=== PATIENT | male | born 1995 | race African-American/Black ===

== ENCOUNTER 2017-05-05 18:32 | Emergency (ER) | payer OTHER ==
[~2017-05-05] VITALS: Ht 185.4 cm; Wt 64.1 kg
[~2017-05-05 18:32] MED LIST: ONDA4TAB9 PO
[2017-05-05 18:42] VITALS: BP 107/70; PULSE 78; RESP 14; O2SAT 100
[2017-05-05 19:37] LABS: BASOPHILS % (AUTO) 0 % (0-3); EOSINOPHILS % (AUTO) 0 % (0-5); MONOCYTES % (AUTO) 4.4 % (4-12); Mean Corpuscular Hemoglobin 28.5 pg (27.0-35.0); Mean Corpuscular Volume 83.7 fL (81-100); Platelet Count 186 bil/L (150-400)
[2017-05-05 19:59] LABS: Magnesium 1.9 mg/dL (1.6-2.6)
--- NOTE | 2017-05-05 20:44 | ED.REPORT ---
HPI-NVD Date of Service May 05, 2017 ED Provider: Dr. Sundeep Pagan MD A 22 year old male with a suspected history of cyclic vomiting syndrome/ abdominal migraines presents to the ED with vomiting that began 3 days ago. The patient also presents with nausea, abdominal cramping and diarrhea that have become increasingly worse over the past few hours. Patient reports that his current symptoms are similar to his previous flares of cyclic vomiting. Vomiting has been intractable and he has been experiencing multiple episodes of diarrhea. He admits to occasional THC use. Patient denies drinking from any [place] or [place] recently. He was sent to the ED from Urgent Care for further evaluation. Patient denies recent fever or chills. Nursing Notes Stated Complaint: ABDOMINAL PAIN Chief Complaint: Male Abdominal Pain Nursing Notes Reviewed: Yes Allergies: Coded Allergies: No Known Allergies (Verified Allergy, Unknown, 07/02/16) Scheduled PRN Ondansetron ODT (Zofran ODT) 4 Mg Tablet 4 MG PO Q4H PRN PRN For Nausea General Time Seen by MD: 20:44 Chief Complaint Vomiting Hx Obtained From: Patient Arrived By: Walk-in Onset Occurred: 3 days ago Symptom Duration: Since onset Location: : Abdomen lower Quality: Cramping Radiation: : Does not radiate Severity: Current: Moderate Severity: Maximum: Moderate Associated with: Reports: Abdominal pain, Denies: Fever Pertinent Negative: Pt denies other symptoms Recent Healthcare: No recent doctor visit, No recent hospitalization Past Medical History Past Medical History Suspected: Cyclic vomiting syndrome Abdominal migraines Past Surgical History None reported. Family History Non-contributory Smoking History Unknown if Ever Smoker Social History Drug Use: THC Other Social History: Good social support, Local resident Ambulatory Status Independent Review of Systems Constitutional: Denies: Chills, Fever GI: Reports: Abdominal pain, Diarrhea, Nausea, Vomiting Complete sys rev & neg: except as marked. Physical Exam Initial Vital Signs Vital Signs (First) Date Time Temp Pulse Resp B/P Pulse Ox O2 Delivery O2 Flow Rate FiO2 05/05/17 18:42 36.6 78 14 107/70 100 Room Air Initial VS: Reviewed Head / Eyes: Atraumatic, Normocephalic, PERRL Neck: Supple, Non-tender, Full range of motion Extremities: Vascular intact, Neuro intact, No swelling, No tenderness Skin: Warm, Dry, No cyanosis Neurologic: Alert, Oriented, Nonfocal Psychiatric: Mood/affect normal, Behavior normal, Normal thought content General/Constitutional: Awake, Alert, No acute distress Abdomen: Atraumatic, Soft, Non-tender, No guarding, No rebound, BS normoactive ENT: Atraumatic, Airway patent Mouth: Positive: Mucous membranes dry Respiratory / Chest: Atraumatic, Breath sounds NL, Breath sounds = bilat, No respiratory distress Cardiovascular: Heart rate NL, Regular rhythm, Heart sounds NL Interpretation & Diagnostics Lab Results Interpretation Result Diagram: 05/05/17192405/05/171924 Test 05/05/17 19:25 White Blood Count 11.1th/mm3 (3.8-10.1) Red Blood Count 4.98mil/mm3 (4.40-5.80) Hemoglobin 14.2g/dL (13.8-17.2) Hematocrit 41.7% (41.0-50.0) Mean Corpuscular Volume 83.7fL (81-100) Mean Corpuscular Hemoglobin 28.5pg (27.0-35.0) Mean Corpuscular Hemoglobin Concent 34.1% (32.0-37.0) Red Cell Distribution Width 13.1% (12.3-15.4) Platelet Count 186bil/L (150-400) Neutrophils (%) (Auto) 93.0% (40-74) Lymphocytes (%) (Auto) 2.5% (14-46) Monocytes (%) (Auto) 4.4% (4-12) Eosinophils (%) (Auto) 0% (0-5) Basophils (%) (Auto) 0% (0-3) Sodium Level 137mEq/L (134-144) Potassium Level 4.2mEq/L (3.5-5.2) Chloride Level 102mEq/L (97-108) Carbon Dioxide Level 21mmol/L (18-29) Blood Urea Nitrogen 13mg/dL (6-20) Creatinine 0.72mg/dL (0.76-1.27) Estimat Glomerular Filtration Rate 144mL/min (>59) Glucose Level 112mg/dL (60-99) Lactic Acid Level 1.1mmol/L (0.4-2.0) Calcium Level 10.0mg/dL (8.5-10.1) Magnesium Level 1.9mg/dL (1.6-2.6) Total Bilirubin 0.5mg/dL (0.0-1.2) Aspartate Amino Transf (AST/SGOT) 18U/L (0-50) Alanine Aminotransferase (ALT/SGPT) 15U/L (0-44) Alkaline Phosphatase 54U/L (25-150) Total Protein 8.0g/dL (6.4-8.4) Albumin 4.7g/dL (3.4-5.0) Lipase 21U/L (13-60) Hold Mathews Top Tube Received (Received) Re-Eval/Medical Decision Re-Evaluation/Progress : Time of Eval: 22:45 Patient Status: Condition improved Re-Evaluation/Progress Note: Patient condition is re-evaluated. symptoms have improved following treatment. He is informed of his current results and the intended treatment plan. All of the patient's questions about his likely diagnosis and disposition are addressed. He understands and agree with the plan. Counseled Regarding: Diagnosis, Lab results, Need for follow-up, When/why to return to ED Discharge & Departure Impression: Primary Impression: Cyclical vomiting Vomiting Intractability: intractable Nausea presence: with nausea Qualified Code: G43.A1 - Cyclical vomiting, intractable Disposition: Home Discharge Condition All VS Reviewed: Yes Condition: Improved Patient Instructions: Acute Nausea and Vomiting (ED) Additional Instructions: Thank you for trusting us with your care this evening. Your emergency department evaluation today including examination and lab work are reassuring that there is no emergent cause for concern at this time and I believe that your symptoms are likely due to cyclic vomiting syndrome or abdominal migraines. A clear cause of your pain was not identified so I highly recommend that you schedule a follow-up appointment with your primary care physician tomorrow for a recheck. I recommend that you abstain from THC use as it may be the cause of your symptoms. Take 1-2 Zofran every 8 hours as needed for nausea. Clear liquid diet for the next 24 hours. You may want to follow up with a GI specialist for a colonoscopy. Please return to the emergency department for any new or worsening conditions including any fevers, chills, nausea, vomiting, excessive sweating, lightheadedness, weakness or any other concerning symptoms. Referrals: NOPCP (PCP) Blayne Mathis MD [facility] Scribe Attestation Portions of this note were transcribed by Gama Mcfarlane. I, Dr. Pagan personally performed the history, physical exam and medical decision-making; I reviewed and confirmed the accuracy of the information in the transcribed note. Sundeep Pagan DO May 05, 2017 20:44 GAMA MCFARLANE May 05, 2017 20:52
[2017-05-05] MEDS ORDERED: 0.9% Sodium Chloride 1,000 ML IV ONE (21:07)
[2017-05-05] MEDS ORDERED: MetoCLOpramide 5 mg/mL 2 mL Inj IVPUSH ONE (21:10)
[2017-05-05 22:44] VITALS: BP 115/70; PULSE 67; RESP 16; O2SAT 100
[2017-05-05] MEDS ORDERED: _Ondansetron ODT 4 mg Tablet PO PRN (22:50)
== END 2017-05-05 23:06 | disposition home or self-care (01) ==
LOC: SED 18:32
DX: G43.A1 Cyclical vomiting, in migraine, intractable (principal); R10.30 Lower abdominal pain, unspecified; R19.7 Diarrhea, unspecified; G43.D0 Abdominal migraine, not intractable; F12.10 Cannabis abuse, uncomplicated
CPT/HCPCS: 36415; 80053; 83605; 83690; 83735; 85025; 96361; 96374; 96375; 99284; J1200; J2765; J7030